=== PATIENT | female | born 2005 | race Caucasian/White ===

== ENCOUNTER 2023-04-12 15:15 | Outpatient (CLI) | payer OTHER, SELFPAY ==
[2023-04-12 16:25] LABS: Kit Draw Collected
== END 2023-04-12 15:16 | disposition home or self-care (01) ==
LOC: ANHGOSHLAB 15:17
PROVIDERS: PCP Internal Medicine; Visit Provider Clinical Nurse Specialist
DX: Z13.228 Encounter for screening for other metabolic disorders (principal); F41.9 Anxiety disorder, unspecified; R73.9 Hyperglycemia, unspecified
CPT/HCPCS: 36415

== ENCOUNTER 2023-11-29 17:52 | Emergency (ER) | payer OTHER, SELFPAY ==
[2023-11-29 17:59] VITALS: BP 125/87; PULSE 116; RESP 16; TEMP 36.6; O2SAT 100
--- NOTE | 2023-11-29 18:07 | ED.URI ---
HPI - URI/Sore Throat General Chief Complaint: Upper Respiratory Infection Stated Complaint: Congestion,Fatigue,Cough Time Seen by Provider: 11/29/23 18:07 Source: patient Mode of arrival: ambulatory Limitations: no limitations History of Present Illness HPI Narrative: Zeus is a 17-year-old female patient presenting to the clinic today with complaints of fatigue, cough, sore throat and headache with head congestion times 3-4 days. She reports no known fever. No known sick contacts. MD elicited complaint: sore throat and nasal congestion Related Data Home Medications Medication Instructions Recorded Confirmed No Home Medications 04/12/23 11/29/23 Allergies Allergy/AdvReac Type Severity Reaction Status Date / Time No Known Allergies Allergy Mild Verified 04/12/23 14:11 Review of Systems Review of Systems: Pertinent positives per HPI. Patient denies any fever, chills, rash, visual changes, dizziness, shortness of breath, chest pain, palpitations, nausea, vomiting, diarrhea, constipation, abdominal pain, or any urinary issues. PMFSH Social History Social History Smoking status: Never smoker Lack of Transportation: No Lack of Food: Never True Current Housing: I Have Housing Concerned About Future Housing: No Difficulty Paying Gas/Electric Bills: No Difficulty Paying for Meds: No Currently Unemployed: No Education: High School Diploma/GED Difficulty w/ Childcare or Family Care: No Living arrangements: with family Comments At the time of my signature, I reviewed and agree with the nursing past medical, surgical, social, and family history. There is no relevant family history pertinent to the patient complaint. Exam Narrative: General: Well-developed, well nourished, in no apparent distress Head: Normocephalic, atraumatic Eyes: Pupils equally round and reactive to light bilaterally, EOM intact, sclera and conjunctive clear, no discharge, lids normal Ears: TMs intact and clear, ear canals clear, no drainage, grossly hearing normal. Nose: Nares patent, clear discharge, no inflammation, no sinus tenderness. Mouth: Oral pharynx red without lesions or masses, good dentition, MMM. Neck: Supple, trachea midline, no enlargement of anterior or posterior cervical nodes, no thyroid masses or goiter palpable. Cardio: Regular rate and rhythm, s1 and s2 normal, no murmur appreciated. Resp: Clear to auscultation bilaterally, no rhonchi, rales, wheezing or rubs Course Course Emergency Course: Portions of this record may have been created with voice recognition software. Level of Care: Express Care Visit Vital Signs Vital signs: Vital Signs Temperature 36.6 C 11/29/23 17:59 Pulse Rate 116 H 11/29/23 17:59 Respiratory Rate 16 11/29/23 17:59 Blood Pressure 125/87 11/29/23 17:59 Pulse Oximetry 100 11/29/23 17:59 Oxygen Delivery Room Air 11/29/23 17:59 Temperature 36.6 C 11/29/23 17:59 Pulse Rate 116 H 11/29/23 17:59 Respiratory Rate 16 11/29/23 17:59 Blood Pressure 125/87 11/29/23 17:59 Pulse Oximetry 100 11/29/23 17:59 Oxygen Delivery Room Air 11/29/23 17:59 Vital signs reviewed MDM - URI/Sore Throat MDM Narrative Medical decision making narrative: At the time of visit patient is resting comfortably on the exam table. Patient appears to be nontoxic. Labs: COVID testing and strep testing was negative. We will send strep for culture. Influenza testing is positive for influenza B Plan: I suspect patient has influenza B. Work note was given. We will send strep for culture. supportive measures were discussed with the patient and they voiced understanding discharge instructions and agrees to treatment plan. Return precautions reviewed Differential Diagnosis Differential diagnosis: Likely upper respiratory infection, otitis media, sinusitis, viral infection, bronchitis, influe
== END 2023-11-29 18:37 | disposition home or self-care (01) ==
PROVIDERS: Emergency Provider Nurse Practitioner Family; PCP Internal Medicine
DX: J10.1 Influenza due to other identified influenza virus with other respiratory manifestations (principal); Z20.822 Contact with and (suspected) exposure to COVID-19
CPT/HCPCS: 87081; 87426; 87804; 87880; 99213; G0463